=== PATIENT | male | born 2000 | race Caucasian/White ===

== ENCOUNTER 2024-02-26 14:28 | Emergency (ER) | payer BC, SELFPAY ==
[2024-02-26 15:23] VITALS: BP 130/82; PULSE 92; RESP 16; TEMP 37.2; O2SAT 98; BMI 26.6
--- NOTE | 2024-02-26 15:33 | EDNOTE_ITS ---
ED General RME/HPI General Chief complaint: Flu Like Symptoms Stated complaint: SORE THROAT WITH COUGH Time Seen by Provider: 02/26/24 15:28 Arrival date/time: 02/26/24 14:28 CC: Swollen and sore throat onset last night prior history of strep throat . Took antibiotics and then it went away . Denies fever shortness of breath or difficulty breathing Related Data Previous Rx's ?Medication ?Instructions ?Recorded prednisone 20 mg tablet See Taper PO BID 3 days #6 tabs 02/26/24 Allergies Allergy/AdvReac Type Severity Reaction Status Date / Time No Known Allergies Allergy Verified 02/26/24 14:33 Review of Systems Review of Systems Narrative Review of Systems: GEN: No fever, no chills, no weight loss EYES: No discharge, no visual changes, no pain HEENT: No ear pain, no congestion, + sore throat PULM: No shortness of breath, no cough, no congestion CV: No chest pain, no dyspnea on exertion, no palpitations GI: No nausea, no vomiting, no diarrhea, no pain, no constipation : No frequency, no urgency, no dysuria MUSC/SKEL: No joint pain, no back pain SKIN: No rash PSYCH: No hallucinations, no depression HEME/LYMPH: No easy bleeding or bruising tendencies NEURO: No weakness, no headache Past Medical History Social History SMOKING STATUS: Never smoker ED Exam Narrative Physical exam: [General: Mild discomfort on any acute distress Head normocephalic HEENT: Mouth: [place] moist membranes uvula midline posterior pharynx erythematous and edematous no exudative patches. All other subsystems of HEENT arewithin acceptable limits Neck is supple nontender Chest equal chest rise nontender to palpation Respiratory: Clear to auscultation no wheezes crackles or rubs CV: Rate rhythm is regular no murmurs rubs or clicks Abdomen is distended secondary to body habitus soft nontender no masses positive bowel sounds all 4 quadrants Back: No CVA tenderness no spinous process tenderness from cervical spine thoracic and lumbar spine Skin: Intact no petechiae rash induration ulceration or crepitus Extremities: Moving all extremity against resistance cap refill less than 2 seconds neurosensory intact Neuro: Awake alert oriented x3 Glascow coma 15 no focal deficits] Course Quality Measures none Orders Category Date Time Status Strep A Rapid Stat Lab 02/26/24 15:42 Completed Dexamethasone Inj [Decadron Inj] Med 02/26/24 15:30 Discontinued 10 mg IM X1 ONE PEN G SCOTTIE (Bicillin LA) [Bicillin La Inj] Med 02/26/24 15:30 Discontinued 1.2 mmu IM X1 ONE PEN G SCOTTIE (Bicillin LA) [Bicillin La Inj] Med 02/26/24 16:13 Discontinued 1.2 mmu IM X1 ONE Vital Signs Vital signs: Vital Signs Temperature 98.9 F 02/26/24 15:23 Pulse Rate 92 02/26/24 15:23 Respiratory Rate 16 02/26/24 15:23 Blood Pressure 130/82 02/26/24 15:23 Pulse Oximetry (%) 98 02/26/24 15:23 Oxygen Delivery Method Room Air 02/26/24 15:23 [facility] Patient data External records reviewed:: [facility] previous records Clinical information provided by:: patient Social determinants that could affect healthcare access:: none Patient has the following chronic illnesses:: None How is presenting disease/condition affected by chronic disease/condition?: uneffected by Evaluation data The following diagnostics were reviewed and interpreted by me:: lab results Lab and/or radiology exams considered but not ordered:: Strep is positive Interpretation Summary: Strep pharyngitis Medications Medications considered but not ordered:: None Medication administrations:: Medication Administration History Discontinued Medications Dexamethasone Sodium Phosphate (Dexamethasone Sod Phos Inj 10 Mg/Ml Vial) 10 mg IM X1 ONE Stop: 02/26/24 15:31 Last Admin: 02/26/24 15:57 Dose: 10 mg Documented By: LEI Penicillin G Benzathine (Pen G Scottie (Bicillin La) 1.2 Mmu/2 Ml Syrg) 1.2 mmu IM X1 ONE Stop: 02/26/24 15:31 Last Admin: 02/26/24 16:25 Dose: Not Given Documented By: LEI Non-Admin Reason: Duplicate Medication on eMAR Penicillin G Benzathine (Pen G Scottie (Bicillin La) 1.2 Mmu/2 Ml Syrg) 1.2 mmu IM X1 ONE Stop: 02/26/24 16:14 Last Admin: 02/26/24 16:19 Dose: 1.2 mmu Documented By: LEI None Consultations Consultation(s) initiated? (list below): No Diagnosis Differential Diagnosis ED Complaint MDM: Strep pharyngitis viral syndrome peritonsillar abscess Most likely diagnosis given after review of the tests above:: Strep pharyngitis Admission Indicated Admission indicated?: not indicated Explain why admission is indicated or not indicated:: Stable for outpatient follow-up Admission Request Was there a request for admission?: No Disposition Plan Disposition Plan: Discharge Discharge Attestation Discharge Attestation: The patient and all family members were given an opportunity to ask questions and understood the discharge instructions. Discharge instructions specifically effects, indications for sooner follow up or return to the emergency department, and the expected course of current diagnosis. Patient condition: Stable Medical Decision Making Differential Diagnosis Differential Diagnosis: Strep pharyngitis viral syndrome peritonsillar abscess Lab Data Labs: Lab Results 02/26/24 Range/Units 15:42 Group A Strep Rapid Positive A (Negative) Discharge Plan Plan Patient Disposition: HOME (Self Care) Patient condition on transfer: Stable Prescriptions/Referrals Prescriptions/Med Rec: New prednisone 20 mg tablet See Taper PO BID 3 Days Qty: 6 0RF Taper: Prednisone Taper 20 mg DAILY for 2 Days and 0 Hour 10 mg DAILY for 2 Days and 0 Hour 5 mg DAILY for 7 Days and 0 Hour Problem List Clinical Impression: Acute streptococcal pharyngitis Patient/Caregiver Discharge Instructions Print Language: Telugu Stand Alone Forms: Loyda Award Info., Work/School Release, Patient Portal Info Letter CONCHITA/ADALID Supervising Physician CONCHITA/ADALID Supervising Physician: Donnell Hernandez ENP
[2024-02-26 15:57] LABS: Strep A Rapid Positive (Negative)
[2024-02-26] MEDS: DEXAMETHASONE SOD PHOS INJ 10 MG/ML VIAL IM (15:57)
[2024-02-26] MEDS: PEN G BENZ (Bicillin LA) 1.2 MMU/2 ML SYRG IM (16:19)
== END 2024-02-26 16:23 | disposition home or self-care (01) ==
PROVIDERS: Registered Nurse General Practice; Emergency Provider Emergency Medicine
DX: J02.0 Streptococcal pharyngitis (principal)
CPT/HCPCS: 87651; 96372; 99283; J0561; J1100

== ENCOUNTER 2024-10-02 04:45 | Emergency (ER) | payer BC, SELFPAY ==
[2024-10-02 04:46] VITALS: BMI 26.3
[2024-10-02 05:01] VITALS: BP 118/78; PULSE 89; RESP 16; TEMP 37.8; O2SAT 97
--- NOTE | 2024-10-02 05:50 | EDNOTE_ITS ---
ED Dental RME/HPI General Chief complaint: Dental/Oral/Throat Stated complaint: THROAT PAIN Time Seen by Provider: 10/02/24 04:58 Arrival date/time: 10/02/24 04:45 this is a case of 24-year-old male with history of strep throat came in in the emergency room due to sore throat for 2 days associated with vomiting denies any fever or chills she has no hoarseness of voice no drooling of saliva Limitations: no limitations Related Data Previous Rx's ?Medication ?Instructions ?Recorded amoxicillin 875 mg-potassium 1 tab PO Q12H 10 days #20 tabs 10/02/24 clavulanate 125 mg tablet ibuprofen 800 mg tablet 800 mg PO Q8H PRN pain #20 t abs 10/02/24 lidocaine HCl 2 % mucosal solution 10 ml PO Q4H PRN so re throat #100 10/02/24 (Lidocaine Viscous) mL ondansetron 4 mg disintegrating 4 mg PO Q8H PRN nausea and 10/02/24 tablet vomiting #20 tabs prednisone 20 mg tablet See Taper PO QDAY 5 days #5 tabs 10/02/24 Allergies Allergy/AdvReac Type Severity Reaction Status Date / Time No Known Allergies Allergy Verified 10/02/24 04:46 Review of Systems Review of Systems Systems Reviewed: All systems reviewed, normal except as documented Constitutional Constitutional: Reports system reviewed and no additional complaints, except as documented, Reports as per HPI, Denies chills, Denies fever(s) and Denies headache(s) ENT Ears, Nose, Mouth, and Throat: Reports system reviewed and no additional complaints, except as documented, Reports as per HPI, Denies abnormal hearing, Denies bleeding gums, Denies change in voice, Denies dental pain, Denies disequilibrium, Denies dizziness, Denies dry mouth, Denies dysphagia, Denies ear discharge, Denies otalgia, Denies epistaxis, Denies facial pain, Denies halitosis, Denies headache(s), Denies hearing loss, Denies hoarseness, Denies lip swelling, Denies mouth lesions, Denies mouth pain, Denies nasal congestion, Denies nasal discharge, Denies nasal obstruction, Denies nasal trauma, Denies neck mass, Denies neck pain, Denies nose pain, Denies odynophagia, Denies post nasal drip, Denies sinus pain, Denies sinus pressure, Reports sore throat, Denies throat swelling, Denies tinnitus, Denies tongue swelling and Denies vertigo Cardiovascular Cardiovascular: Reports system reviewed and no additional complaints, except as documented and Reports as per HPI Respiratory Respiratory: Reports system reviewed and no additional complaints, except as documented and Reports as per HPI Gastrointestinal Gastrointestinal: Reports system reviewed and no additional complaints, except as documented, Reports as per HPI, Denies dysphagia and Denies odynophagia Musculoskeletal Musculoskeletal: Denies neck pain Neurologic Neurologic: Reports system reviewed and no additional complaints, except as documented, Reports as per HPI, Denies abnormal hearing, Denies disequilibrium, Denies dizziness, Denies headache(s) and Denies vertigo Allergic/Immunologic Allergic/Immunologic: Denies lip swelling, Denies throat swelling and Denies tongue swelling Past Medical History Social History SMOKING STATUS: Current every day smoker ED Exam General Limitations: Present no limitations General appearance: Present alert, in no apparent distress and other (Patient is awake alert oriented not in distress nontoxic looking well-hydrated well- nourished) Head Head exam: Present atraumatic, normocephalic and normal inspection Eye Eye exam: Present normal appearance, PERRL and EOMI ENT ENT exam: Present normal exam, normal oropharynx, mucous membranes moist and other (Noted ear and nose normal pharynx red both tonsils were swollen red with exudate uvula midline no redness no swelling no lesion no peritonsillar abscess no drooling of saliva patient can speak full sentences no muffled voice no hot potato voice) Neck Neck exam: Present normal inspection, full ROM, trachea midline and other (No neck mass); Absent tenderness, meningismus, lymphadenopathy or thyromegaly Chest Chest inspection: Present normal inspection and symmetric chest wall rise Respiratory Respiratory exam: Present normal lung sounds bilaterally; Absent respiratory distress, wheezes, stridor, accessory muscle use or prolonged expiratory phase Cardiovascular Cardiovascular exam: Present regular rate, normal rhythm and normal heart sounds; Absent bradycardia, tachycardia, irregular rhythm, systolic murmur or diastolic murmur Abdominal Exam Abdominal exam: Present soft and normal bowel sounds Extremities Exam Extremities exam: Present normal inspection and full ROM Back Exam Back exam: Present normal inspection and full ROM Neurological Exam Neurological exam: Present alert, oriented X3, CN II-XII intact, normal gait and reflexes normal; Absent motor sensory deficit Psychiatric Psychiatric exam: Present normal affect and normal mood Skin Skin exam: Present warm, dry, intact and normal color Course Quality Measures none Orders Category Date Time Status IV [Insert IV] NOW Care 10/02/24 05:46 Active Strep A Rapid Stat Lab 10/02/24 05:15 Completed Dexamethasone Inj [Decadron Inj] Med 10/02/24 05:08 Discontinued 10 mg IVP X1 ONE Lidocaine 2% Viscous [Xylocaine 2% Viscous] Med 10/02/24 05:08 Discontinued 15 ml PO X1 ONE Ondansetron Inj [Zofran Inj] Med 10/02/24 05:08 Discontinued 4 mg IVP X1 ONE Sodium Chloride 0.9% 1000 ml [Ns] 1,000 ml Med 10/02/24 05:08 Active IV 999 mls/hr cefTRIAXone/D5w 1gm IV premix [Rocephin/D5w 1gm IV Med 10/02/24 05:08 Discontinued premix] 1 gm in 50 ml IV X1 Vital Signs Vital signs: Vital Signs Temperature 100.1 F 10/02/24 05:01 Pulse Rate 89 10/02/24 05:01 Respiratory Rate 16 10/02/24 05:01 Blood Pressure 118/78 10/02/24 05:01 Pulse Oximetry (%) 97 10/02/24 05:01 Oxygen Delivery Method Room Air 10/02/24 05:01 Patient is afebrile not tachycardic not tachypneic BP stable not hypoxic oxygen saturation is 97% in room air Dental / Oral MDM Narrative MDM Narrative:: this is a case of 24-year-old male with history of strep throat came in in the emergency room due to sore throat for 2 days associated with vomiting denies any fever or chills she has no hoarseness of voice no drooling of saliva physical examination patient is awake alert oriented not in distress nontoxic looking well-hydrated well-nourished patient lungs sound is clear no crackles no rales no retraction no stridor noted ear and nose is normal pharynx is red tonsils is red swollen with exudate no peritonsillar abscess no drooling of saliva patient can speak full sentences no muffled voice no hot potato voice no lymphadenopathy the rest of the physical examination and neurological exam is normal based on my physical exam and history patient symptoms suggestive of exudative tonsillitis pending rapid strep patient was given a bolus of normal saline and Zofran for vomiting no recurrence of vomiting abdominal exam is benign nonsurgical no guarding no rebound no rigidity patient was also given ceftriaxone IV for exudative tonsillitis and will be discharged with Augmentin to be taken for 10 days patient was also given lidocaine viscous for sore throat at this point patient was advised to see a PCP to be referred to ENT specialist for recurrent throat infection and strep throat for any worsening symptoms or any emergent concern he will return in the emergency room immediately or call 911 Patient was discharged with comfortable condition walking with stable gait. Patient verbalized no further complains explained diagnosis and answered patient question. Patient is comfortable with the proposed management plan including the need to follow up with his/her primary care physician and any specialist if applicable Discussed patient for any urgent condition or worsening sx, He/She needed to go to emergency room immediately or call 911. Patient acknowledge the responsibility to follow up as instructed and to monitor her/his symptoms. For any persistence of the symptoms for more than 3-5 days return precaution advised. Discussed the result of the test and was given printed discharge instruction Patient data External records reviewed:: [facility] previous records Clinical information provided by:: patient Social determinants that could affect healthcare access:: none Patient has the following chronic illnesses:: None How is presenting disease/condition affected by chronic disease/condition?: no chronic disease Evaluation data The following diagnostics were reviewed and interpreted by me:: other (specify) Lab and/or radiology exams considered but not ordered:: None Interpretation Summary: None Medications / Prescriptions Medications or Prescriptions considered but not ordered:: Given Medication administrations:: Medication Administration History Sodium Chloride (Ns) 1,000 mls @ 999 mls/hr IV .Q1H1M ONE Stop: 10/02/24 06:08 Discontinued Medications Dexamethasone Sodium Phosphate (Dexamethasone Sod Phos Inj 10 Mg/Ml Vial) 10 mg IVP X1 ONE Stop: 10/02/24 05:09 Ceftriaxone Sodium/Dextrose (Rocephin/D5w 1gm Iv Premix) 1 gm in 50 mls @ 100 mls/hr IV X1 ONE Stop: 10/02/24 05:37 Lidocaine HCl (Lidocaine Viscous 2% 15 Ml Udc) 15 ml PO X1 ONE Stop: 10/02/24 05:09 Ondansetron HCl (Ondansetron Inj 2 Mg/Ml Inj 2 Ml) 4 mg IVP X1 ONE; Protocol Stop: 10/02/24 05:09 Given Consultations Consultation(s) initiated? (list below): No Diagnosis Dental Differential Diagnosis: other (Strep throat acute pharyngitis tonsillitis sinusitis) Most likely diagnosis given after review of the tests above:: Exudative tonsillitis Admission Indicated Admission indicated?: not indicated Explain why admission is indicated or not indicated:: Not indicated Admission Request Was there a request for admission?: No Disposition Plan Disposition Plan: Discharge Discharge Attestation Discharge Attestation: The patient and all family members were given an opportunity to ask questions and understood the discharge instructions. Discharge instructions specifically effects, indications for sooner follow up or return to the emergency department, and the expected course of current diagnosis. Patient condition: Stable Discharge Plan Plan Patient Disposition: HOME (Self Care) Patient condition on transfer: Stable Prescriptions/Referrals Prescriptions/Med Rec: New amoxicillin-pot clavulanate 875-125 mg tablet 1 tab PO Q12H 10 Days Qty: 20 0RF prednisone 20 mg tablet See Taper PO QDAY 5 Days Qty: 5 0RF Taper: Prednisone Taper 20 mg DAILY for 2 Days and 0 Hour 10 mg DAILY for 2 Days and 0 Hour 5 mg DAILY for 7 Days and 0 Hour lidocaine HCl [Lidocaine Viscous] 2 % solution 10 ml PO Q4H PRN (Reason: sore throat) Qty: 100 0RF ibuprofen 800 mg tablet 800 mg PO Q8H PRN (Reason: pain) Qty: 20 0RF ondansetron 4 mg tablet,disintegrating 4 mg PO Q8H PRN (Reason: nausea and vomiting) Qty: 20 0RF Problem List Clinical Impression: Exudative tonsillitis, Vomiting Patient/Caregiver Discharge Instructions Education Materials: Tonsillitis in Adults, ED Vomiting (Adult) Additional Instructions: Follow-up with your primary care physician in 2 days for reevaluation and to be referred to ENT specialist for further evaluation and treatment of recurrent strep throat recurrence worsening symptoms or any emergent concern call 911 or go to the nearest emergency room take your medication as directed finish the course of antibiotic increase water intake keep hydrated. Warm saline gargles advised Gatorade Gatorade for every bouts of vomiting Print Language: Faroese Stand Alone Forms: Loyda Award Info., Patient Portal Info Letter PA/ADALID Supervising Physician CONCHITA/ADALID Supervising Physician: dr JACKSON
[2024-10-02 05:58] LABS: Strep A Rapid Positive (Negative)
[2024-10-02] MEDS: ONDANSETRON INJ 2 MG/ML INJ 2 ML 4 MG IVP (05:59)
[2024-10-02] MEDS: SODIUM CHLORIDE 0.9% 1000 ML 1,000 ML 999 ML IV (05:59)
[2024-10-02] MEDS: DEXAMETHASONE SOD PHOS INJ 10 MG/ML VIAL IVP (05:59)
[2024-10-02] MEDS: LIDOCAINE VISCOUS 2% 15 ML UDC PO (06:00)
[2024-10-02] MEDS: cefTRIAXone/D5w 1gm IV premix 1 GM/50 ML BAG IV (06:00)
[2024-10-02 06:51] VITALS: BP 120/78; PULSE 85; RESP 18; TEMP 37.3; O2SAT 98
== END 2024-10-02 06:51 | disposition home or self-care (01) ==
LOC: SERX 07:27
PROVIDERS: Nurse Practitioner Family; Emergency Provider Emergency Medicine
DX: J03.90 Acute tonsillitis, unspecified (principal); R11.10 Vomiting, unspecified
CPT/HCPCS: 87651; 96365; 96375; 99284; J0696; J1100; J2405; J3490; J7030

== ENCOUNTER 2024-10-23 23:17 | Emergency (ER) | payer BC, SELFPAY ==
[2024-10-23 23:18] VITALS: BMI 25.8
[2024-10-23 23:34] VITALS: BP 111/74; PULSE 82; RESP 18; TEMP 37.2; O2SAT 96
[2024-10-24] MEDS: ACETAMINOPHEN 500 MG TABLET 1000 MG PO (01:18)
[2024-10-24 02:13] LABS: Strep A Rapid Positive (Negative)
--- NOTE | 2024-10-24 02:42 | PD.EDADULT ---
ED General RME/HPI General Chief complaint: Dental/Oral/Throat Stated complaint: THROAT PAIN Time Seen by Provider: 10/24/24 00:13 Arrival date/time: 10/23/24 23:17 RME / HPI RME / HPI narrative: 24-year-old male presents to the ED with a complaint of sore throat, nausea, fever and chills. He has been ill since Tuesday. He denies any ear pain, runny nose or nasal congestion, vomiting or diarrhea, abdominal pain. He is sure he has strep throat and wants the antibiotic injection instead of oral antibiotics. He has had documented strep pharyngitis 3 times since December,. Related Data Previous Rx's ?Medication ?Instructions ?Recorded ibuprofen 800 mg tablet 800 mg PO Q8H PRN pain #20 tabs 10/02/24 lidocaine HCl 2 % mucosal solution 10 ml PO Q4H PRN sore throat #100 10/02/24 (Lidocaine Viscous) mL ondansetron 4 mg disintegrating 4 mg PO Q8H PRN nausea and 10/02/24 tablet vomiting #20 tabs Allergies Allergy/AdvReac Type Severity Reaction Status Date / Time No Known Allergies Allergy Verified 10/23/24 23:23 Review of Systems Review of Systems Systems Reviewed: All systems reviewed, normal except as documented Past Medical History Social History SMOKING STATUS: Current every day smoker Past Medical History Comments PMH COMMENT: Frequent strep pharyngitis infections x 3 since December,. ED Exam Narrative Physical exam: A&O, afebrile and non-toxic appearing 24-year-old male, no acute distress. TMs are without erythema. Pharynx is with erythema and exudate. Neck is supple, tender anterior cervical chain adenopathy. Lung sounds are clear, RRR, Abdomen is soft, nontender, and non-distended. Moves all extremities well. Course Course Course Narrative: Patient was given Tylenol 1000 mg p.o. COVID and influenza swabs obtained and are negative. Rapid strep culture was obtained and is positive. Patient was given pen G 1.2 mmu IM as requested. Quality Measures none Orders Category Date Time Status Bedside COVID-19 Antigen Test NOW Care 10/24/24 01:03 Active Bedside Influenza A&B Antigen Test NOW Care 10/24/24 01:03 Active Strep A Rapid Stat Lab 10/24/24 01:15 Completed Acetaminophen Tab [Tylenol ES Tab] Med 10/24/24 01:03 Discontinued 1,000 mg PO X1 ONE PEN G KAVEH (Bicillin LA) [Bicillin La Inj] Med 10/24/24 02:41 Once 1.2 mmu IM X1 ONE Vital Signs Vital signs: Vital Signs Temperature 98.9 F 10/23/24 23:34 Pulse Rate 82 10/23/24 23:34 Respiratory Rate 18 10/23/24 23:34 Blood Pressure 111/74 10/23/24 23:34 Pulse Oximetry (%) 96 10/23/24 23:34 Oxygen Delivery Method Room Air 10/23/24 23:34 Discharge Plan Plan Patient Disposition: HOME (Self Care) Discharge Disposition comment: Stable Prescriptions/Referrals Prescriptions/Med Rec: No Action lidocaine HCl [Lidocaine Viscous] 2 % solution 10 ml PO Q4H PRN (Reason: sore throat) Qty: 100 0RF ibuprofen 800 mg tablet 800 mg PO Q8H PRN (Reason: pain) Qty: 20 0RF ondansetron 4 mg tablet,disintegrating 4 mg PO Q8H PRN (Reason: nausea and vomiting) Qty: 20 0RF Referrals: No Primary/Family,Physician [Primary Care Provider] - In 1 week Problem List Clinical Impression: Acute streptococcal pharyngitis Patient/Caregiver Discharge Instructions Education Materials: ED Pharyngitis, Strep (Confirmed) Additional Instructions: While in the ED, you were given the treatment for streptococcal pharyngitis. You will not need any further antibiotics. Drink plenty of water, do not share eating or drinking utensils, get rest, and take Tylenol or ibuprofen for pain or fever. Since this is your fourth positive strep since December,, it is recommended to have a referral to an ENT. Follow-up with your primary care physician in 24 to 48 hours. Return to the ED for any new or worsening symptoms. Print Language: Greek Stand Alone Forms: Loyda Award Info., Patient Portal Info Letter PA/FIELD RESEARCH ASSISTANT Supervising Physician PA/FIELD RESEARCH ASSISTANT Supervising Physician: Dr Paulson [facility] Narrative [facility] hospital course: Symptoms, exam and diagnostic studies are consistent with: Streptococcal pharyngitis. Patient was given pen G 1.2 mmu IM prior to discharge. Patient was discharged home in stable condition. Patient/family advised to follow-up with their PCP in 24-48 hours. Encouraged to return to the ED for any new or worsening symptoms. Procedures done or offered: As noted above Clinical Information Provided by patient Medical Records Reviewed [facility] Documented streptococcal pharyngitis x 3 since December,. Meds/Rx Considered, not Ordered None Describe details: N/A Labs/Rad/Tests considered, not Ordered None Describe details: N/A Chronic Illness/Social Conditions Add or document further as needed: Frequent strep pharyngitis EKG EKG not done EKG Interpretation narrative: N/A Lab Interpretation Labs: interpreted by me Lab(s) interpretation(s): As noted above. Imaging Imaging interpretation: none Provider imaging interpretation(s): N/A Radiology reports / interpretation(s): N/A Medication Administration(s) Medication Administration History Penicillin G Benzathine (Pen G Kaveh (Bicillin La) 1.2 Mmu/2 Ml Syrg) 1.2 mmu IM X1 ONE Stop: 10/24/24 02:42 Discontinued Medications Acetaminophen (Acetaminophen 500 Mg Tablet) 1,000 mg PO X1 ONE Stop: 10/24/24 01:04 Last Admin: 10/24/24 01:18 Dose: 1,000 mg Documented By: CB As noted above Diagnosis Differential diagnosis: COVID, influenza A/B, strep pharyngitis Differential dx and/or dx ruled out: COVID and influenza A/B Most likely dx, and/or detailed dx discussion: Streptococcal pharyngitis Dispositon Disposition: Discharge Home Disposition comments: Patient is stable for discharge
[2024-10-24] MEDS: PEN G BENZ (Bicillin LA) 1.2 MMU/2 ML SYRG IM (02:54)
[2024-10-24 02:58] VITALS: BP 116/72; PULSE 72; RESP 16; TEMP 36.8; O2SAT 98
== END 2024-10-24 03:04 | disposition home or self-care (01) ==
PROVIDERS: Physician Assistant; Emergency Provider Emergency Medicine
DX: J02.0 Streptococcal pharyngitis (principal); F17.290 Nicotine dependence, other tobacco product, uncomplicated
CPT/HCPCS: 87400; 87651; 87811; 96372; 99283; J0561; A9270